=== PATIENT | male | born 1935 | race Caucasian/White ===

== ENCOUNTER 2016-12-13 13:06 | Inpatient (IN) | payer MEDICARE ==
[2016-12-13] MEDS ORDERED: Pantoprazole IV* 40 MG IV ONE (14:21)
[2016-12-13] MEDS ORDERED: NS 0.9% 1000 ML* 1,000 ML IV ONE (14:22)
--- NOTE | 2016-12-13 14:37 | ED ---
Rickie Quinn Rebecca, scribed for Vanessa Greenberg MD on 12/13/16 at 1349 . Abdominal Pain/Male - HPI Summary HPI Summary: Pt is a 81 y/o M BIBA who presents to ED c/o abd pain since 0430 this morning. Pain is in the epigastric region with radiation up the chest described as going up his esophagus and characterized as his typical indigestion, described as burning. Pain is currently moderate, ranked 5/10. Reports he experiences indigestion often, which is typically alleviated by Tums but they no longer alleviate sx as well. Last took a few Tums today at noon. Pt states has been belching and it tastes "sour." Pt reports his "acid stomach" is worse if he lays right lateral recumbant. Pt states this feels similar, but more intense. Pt denies feves, chills, rash. Pt denies cp, sob. Additionally c/o mild SOB, generalized weakness, fatigue, diaphoresis and N/V this morning. Pt states felt weak and fatigue with walking. Pt states became diaphoretic and weak with walking. Vomited 2x this morning which was "pure black fluid." Notes diarrhea with a "pure black" BM this morning. Pt states he regularly checks his stool and that today's black stool is different. Denies dysuria, dizziness. Pt is in Pradaxa. Notes a normal stress test this spring Dr. Morris. Pt states was peviously on Nexium following a scope 3 years ago, Dr. Vega. States scope was negative. Pt states could not afford Nexium so was prescribed zantac. Pt states stopped taking approx 1 year ago because didn't think he needed it. Daughter reports he appeared very weak this morning and that he typically experiences slight dyspnea at exertion. PMHx A Fib for which he is on Pradaxa. Had a stress test 1 year ago which revealed "good blood flow." Does not take any iron supplements. Had a colonoscopy with Dr. Vega in 2013. - History of Current Complaint Chief Complaint: EDAbdPain Stated Complaint: VOMITING / ABD PAIN Time Seen by Provider: 12/13/16 13:48 Hx Obtained From: Patient, Family/Guest Relations Agent - Daughter Onset/Duration: Still Present Timing: Constant, Lasting Hours Severity Currently: Moderate Pain Intensity: 5 Pain Scale Used: 0-10 Numeric Location: Epigastric Radiates: Yes Radiates to: Chest Character: Burning Aggravating Factor(s): Nothing Alleviating Factor(s): Nothing Associated Signs And Symptoms: Positive: Nausea, Vomiting, Diarrhea - Allergies/Home Medications Allergies/Adverse Reactions: Allergies Allergy/AdvReac Type Severity Reaction Status Date / Time Ibuprofen [From Advil] Allergy See Comment Verified 12/13/16 13:57 Home Medications: Home Medications Calcium Carbonate CHEW TAB* [Tums*] 1 - 2 tab PO TID 12/13/16 [History Confirmed 12/13/16] Magnesium Chloride EC TAB* [Slow Mag EC TAB*] 1 tab PO DAILY 12/13/16 [History Confirmed 12/13/16] PMH/Surg Hx/FS Hx/Imm Hx Endocrine/Hematology History: Reports: Hx Anticoagulant Therapy - Pradaxa Denies: Hx Diabetes, Hx Thyroid Disease Cardiovascular History: Reports: Hx Angina, Hx Atrial Fibrillation, Hx Hypertension - ON MEDICATION, Other Cardiovascular Problems/Disorders - AFIB Denies: Hx Coronary Artery Disease, Hx Hypercholesterolemia, Hx Myocardial Infarction, Hx Pacemaker/ICD, Hx Valvular Heart Disease Respiratory History: Reports: Hx Sleep Apnea Denies: Hx Asthma, Hx Chronic Obstructive Pulmonary Disease (COPD) GI History: Denies: Hx Ulcer History: Reports: Hx Kidney Stones - 4 YRS AGO Musculoskeletal History: Reports: Hx Arthritis - THUMBS Denies: Hx Rheumatoid Arthritis, Hx Osteoporosis Sensory History: Reports: Hx Contacts or Glasses - GLASSES Denies: Hx Hearing Aid Opthamlomology History: Reports: Hx Contacts or Glasses - GLASSES Psychiatric History: Denies: Hx Panic Disorder - Surgical History Surgery Procedure, Year, and Place: rotator cuff 1979, appy 1956. L ESWL 2010 [facility] [place] Hx Anesthesia Reactions: No Infectious Disease History: Denies: Hx Hepatitis, Hx Human Immunodeficiency Virus (HIV), Traveled Outside the [place] in Last 30 Days - Family History Known Family History: Positive: Cardiac Disease Negative: Diabetes - Social History Occupation: Retired Lives: With Family Alcohol Use: Rare Substance Use Type: Reports: None Smoking Status (MU): Never Smoked Tobacco Review of Systems Positive: Fatigue, Skin Diaphoresis, Other - Generalized weakness Eyes: Negative ENT: Negative Negative: Chest Pain Positive: Shortness Of Breath - mild Positive: Abdominal Pain - epigastric burning with radiation , Vomiting - "pure black fluid", Diarrhea - "pure black", Nausea, Other - Denies hematemesis Genitourinary: Negative Negative: dysuria Skin: Negative Neurological: Other - Denies dizziness Psychological: Normal All Other Systems Reviewed And Are Negative: Yes Physical Exam Triage Information Reviewed: Yes Vital Signs On Initial Exam: Initial Vitals Temp Pulse Resp BP Pulse Ox 98.3 F 84 16 131/66 97 12/13/16 13:40 12/13/16 13:40 12/13/16 13:40 12/13/16 13:40 12/13/16 13:40 Completion Of Physical Exam Limited Due To: Dementia Appearance: Positive: Well-Nourished, Ill-Appearing - pallor Skin: Positive: Warm, Dry, Other - pallor Head/Face: Positive: Normal Head/Face Inspection Eyes: Positive: Normal ENT: Positive: Normal ENT inspection, Hearing grossly normal, Pharynx normal, TMs normal Neck: Positive: Supple, Nontender, No Lymphadenopathy Respiratory/Lung Sounds: Positive: Clear to Auscultation, Breath Sounds Present , Decreased Breath Sounds Cardiovascular: Positive: Normal, Pulses are Symmetrical in both Upper and Lower Extremities. Negative: Murmur Abdomen Description: Positive: Nontender, No Organomegaly, Soft, Other: - + melena stool Bowel Sounds: Positive: Hypoactive Musculoskeletal: Positive: Normal, Strength/ROM Intact Neurological: Positive: Normal, Sensory/Motor Intact, Alert, Oriented to Person Place, Time Psychiatric: Positive: Normal AVPU Assessment: Alert - Lincoln Coma Scale Best Eye Response: 4 - Spontaneous Best Motor Response: 6 - Obeys Commands Best Verbal Response: 5 - Oriented Diagnostics - Vital Signs Vital Signs Temp Pulse Resp BP Pulse Ox 12/13/16 13:40 98.3 F 84 16 131/66 97 - Laboratory Result Diagrams: 12/13/16 14:30 12/13/16 14:30 Lab Statement: Any lab studies that have been ordered have been reviewed, and results considered in the medical decision making process. - Radiology CXR Xray Interpretation: No Acute Changes - No radiographic evidence for acute cardiopulmonary abnormality on this portable chest x-ray. Radiology Interpretation Completed By: Radiologist - EKG 1438 Cardiac Rate: NL - 87 bpm EKG Rhythm: Atrial Fibrillation Ectopy: PVCs EKG Interpretation: Intervted T wave in lead 1; No STEMI Re-Evaluation - Re-Evaluation First Eval Re-Evaluation Time: 15:08 Comment: Discussed plan to admit pt and conversation with hospitalist. Pt aware of increased BUn/CR. aware of slight elevation of trop. Pt tool Pradaxa this morning. Abdominal Pain Fem Course/Dx - Course Assessment/Plan: Patient medications reviewed this visit. Pt presents with progressive nausea, weakness and epigastric discomfort and burning. 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 Pt notes progressive SOB with activity, today with diaphoresis. On exam pt pale with apparent black stool / melena. Will place 2 IV. protonix. labs. ekg. stool guiaic. T+C. trop. anticipate will admit. Pt and family at bedside - comfortable and in agreement with plan - Diagnoses Provider Diagnoses: GI bleed, Elevated troponin - Provider Notifications Discussed Care Of Patient With: Lizzy Cisneros Time Discussed With Above Provider: 15:04 Instructed by Provider To: Admit As Inpatient - Admits for GI bleed agre with plan for Protonix drip. Discharge - Discharge Plan Condition: Stable Disposition: AGAINST MEDICAL ADVICE The documentation as recorded by the Rickie rivers Rebecca accurately reflects the service I personally performed and the decisions made by me, Vanessa Greenberg MD.
[2016-12-13 14:39] LABS: Hematocrit 35 % (42-52); Hemoglobin 11.7 g/dl (14.0-18.0); Mean Corpuscular HGB Conc 33 g/dl (31-36); Mean Corpuscular Hemoglobin 29 pg (27-31); Mean Corpuscular Volume 87 fL (80-94); Mean Platelet Volume 10 um3 (7.4-10.4); Red Blood Count 4.08 10^6/ul (4.0-5.4); Red Cell Distribution Width 14 % (10.5-15); White Blood Count 12.2 10^3/ul (3.5-10.8)
[2016-12-13 14:58] LABS: Albumin 3.4 g/dL (3.2-5.2); BUN/Creatinine Ratio 43.7 (8-20); Calcium 10.1 mg/dL (8.6-10.3); EGFR African American 65.6 (>60); Globulin 3.1 g/dL (2-4); Magnesium 1.9 mg/dL (1.9-2.7); Potassium 4.1 mmol/L (3.5-5.0); Total Bilirubin 0.6 mg/dL (0.2-1.0); Total Protein 6.5 g/dL (6.4-8.9)
--- NOTE | 2016-12-13 14:58 | RAD ---
INDICATION: Vomiting and abdominal pain COMPARISON: Chest x-ray dated March 27, 2016 TECHNIQUE: Single AP portable view of the chest was obtained. FINDINGS: Image quality is compromised due to the relative inferiority of a portable chest x-ray. The heart and mediastinum exhibit normal size and contour. The lungs are grossly clear. There is no evidence of a large pleural effusion. Visualized bones are normal for the patient's age. IMPRESSION: No radiographic evidence for acute cardiopulmonary abnormality on this portable chest x-ray.
[2016-12-13 15:04] LABS: Troponin I 0.08 ng/mL (<0.04)
[2016-12-13] MEDS ORDERED: Ondansetron INJ* 2 MG/ML VIAL IV PRN (15:40)
[2016-12-13] MEDS ORDERED: Acetaminophen TAB* 325 MG PO PRN (15:40)
[2016-12-13] MEDS: NS 0.9% 1000 ML* 1,000 ML IV SCH (16:44)
[2016-12-13 17:04] LABS: Urine Bacteria Absent (Absent); Urine Bilirubin Negative (Negative); Urine Glucose Negative (Negative); Urine Nitrite Negative (Negative)
[2016-12-13] MEDS: Pantoprazole IV* 80 MG in NS 0.9% 250 ML* 250 ML IVPB SCH (17:18)
[2016-12-13] MEDS: Tamsulosin CAP* 0.4 MG PO SCH (17:18)
[2016-12-13 17:30] LABS: Hematocrit 32 % (42-52); Hemoglobin 10.5 g/dl (14.0-18.0)
--- NOTE | 2016-12-13 22:28 | HP ---
CC: Dr. Young; Dr. Shah * HISTORY AND PHYSICAL: DATE OF ADMISSION: 12/13/16 ATTENDING PROVIDER: Dr. Cisneros * (DICTATD BY SANDRA BOWMAN NP) PRIMARY CARE PROVIDER: Dr. Young. CONSULTING LEATHER CLEANER: Dr. Shah. CHIEF COMPLAINT: 1. Coffee-ground emesis. 2. Tarry stools. HISTORY OF PRESENT ILLNESS: Mr. Lange is a 81-year-old male patient who has a history of AFib, hypertension, BPH, ARBEN, which he is noncompliant with his mask for, and a history of acid reflux. He comes in saying that the last couple of weeks he has had burning epigastric discomfort that starts on the top part of his stomach and radiates up into his chest. He denied having any chest pain and denied having any shortness of breath. He states that last night he went to bed, his stomach felt off, he woke up this morning around 5:30, he vomited, he noticed that he almost filled the bottom of his sink, he filled it up with some black looking emesis. He, shortly thereafter, made some breakfast. He ate some toast and had some tea. Shortly after, he had a black tarry stool x1. He went to his shop and on coming back from the shop, he did not feel well, he got lightheaded, he felt dizzy, he became diaphoretic. He felt like he was going to faint. He sat down again on the toilet, had another small tarry stool and at that point he was concerned that he maybe bleeding and he called 911. There has been no recent reports of fever. He denies any chest pain now. He says he is not having any epigastric discomfort. He says he took an Aleve 2 weeks ago, but does not routinely take this and he does state that he is on Pradaxa for atrial fibrillation. He denied having any abdominal discomfort. No recent cough. No shortness of breath with the exception of when he was walking back to his shop. He came in and was evaluated in the ED. It was noted that he was heme positive. His hemoglobin was down to 11.7. His BUN was up to 59 and elevated troponin of 0.08. Because of these findings and concern for GI bleed, we were asked to evaluate for admission. PAST MEDICAL HISTORY: Significant for: 1. AFib. 2. Hypertension. 3. ARBEN. 4. BPH. 5. GERD. PAST SURGICAL HISTORY: 1. He has had a knee arthroscopy. 2. Appendectomy. 3. Rotator cuff repair. MEDICATIONS: Home meds according his recall include: 1. Pradaxa 150 mg p.o. b.i.d. 2. Calcium carbonate 1 to 2 tabs p.o. t.i.d. 3. Magnesium chloride 1 tablet p.o. daily. 4. Flomax 0.4 mg p.o. daily at bedtime. 5. Proscar 5 mg in the morning. ALLERGIES: His allergies to medications include IBUPROFEN. FAMILY HISTORY: His mother lived to the age of 91, she had dementia. Father lived to the age of 96, he of old age. SOCIAL HISTORY: He does not smoke. He does not drink. He lives with his . Surrogate decision maker is his . REVIEW OF SYSTEMS: There is no documented fever. He denied having any significant weight changes. There was no double vision. He denies having any ear discharge. There was no rhinorrhea. No sore throat or thyroid enlargement. Denies having any chest pain. There was no orthopnea. No nocturnal dyspnea. There is no abdominal pain currently; he did admit to having epigastric pain. He denied having any dysuria. He did admit to having frequency last night. There was nausea with vomiting. No dysuria. There was no loss of consciousness. No pruritus and no skin ulcerations. Review of 14 systems was completed, all others are negative. PHYSICAL EXAMINATION GENERAL: At this time, Mr. Lange is a 81-year-old male patient. He appears to be well nourished, well developed. He does not appear to be in any acute distress. VITAL SIGNS: Blood pressure 131/66, pulse 84, respirations 16, O2 sat 100%, and temperature 98.3. HEENT: Head is atraumatic and normocephalic. Eyes: EOMs are intact. Sclerae anicteric. Throat: Oral mucosa appears to be dry. No oropharyngeal erythema. NECK: Supple. LUNGS: Clear to auscultation. No wheezes, rales or rhonchi. HEART: Sounds S1, S2. Irregularly irregular rate. No murmurs, rubs or gallops. ABDOMEN: Soft, flat. It was nontender. Bowel sounds present. EXTREMITIES: Pulses are 2+ throughout. Able to move all 4 extremities with 5/ 5 strength. NEUROLOGIC: He is awake, he is alert, and he is oriented x3. His tongue is midline. His correction officer reformatory were equal. He had no gross focal deficits. SKIN: Intact. LABORATORY DATA/DIAGNOSTIC STUDIES: Labs revealed WBC 12.2, RBC 4.08, hemoglobin 11.7, hematocrit 35, platelet count of 150. Sodium is 137, potassium is 4.1, chloride of 106, BUN of 59, creatinine 1.35, his creatinine is right near his baseline, but the BUN is high for him, glucose is 143. Lactate 1.9. Calcium 10.1, mag 1.9. Total bili 0.6, AST 11, ALT 15, alk phos 51. Troponin 0.08. Albumin of 3.4. Lipase is 28. He did have a chest x-ray obtained today, impression: No radiographic evidence for acute cardiopulmonary abnormality on this portable x-ray. He did have an EKG obtained today, which does have a subtle difference from his previous EKG. He does have one T-wave inversion now noted in lead I. They were negative in the past. He does have a left bundle-branch block, which is unchanged. No other acute changes were noted. He did have a PVC and he did appear to be in AFib. Old medical records were reviewed. ASSESSMENT AND PLAN: Mr. Lange is a 81-year-old male patient, coming into the ER today with complaints of tarry black stools x2, black emesis x2. On evaluation today, he was found to have elevated BUN, elevated troponin, concern for GI bleed, he was heme-positive. We are asked to evaluate for admission. He will be admitted under inpatient status for: 1. Gastrointestinal bleed: I suspect this is an upper GI bleed. My plan at this point is to touch base with Dr. Shah. I will go ahead and put 2 IVs in him. I will get 2 units of blood on hold. We will check serial H and Hs. In addition to this, I will put him on a Protonix drip, place him on clear liquid diet, and n.p.o. after midnight for possible EGD in the morning. He is hemodynamically stable. Currently, we will stop the Pradaxa. I am getting an INR and a PT as well. 2. Elevated troponin: I suspect this is probably demand ischemia. He does have that subtle EKG change as well, again probably demand ischemia. He is not having any chest pain. I will trend these, get an EKG in the morning, place him on telemetry, and get an echo. 3. Atrial fibrillation: We will hold the Pradaxa. He is rate controlled. We will monitor. 4. Hypertension: Blood pressure is stable. He is currently not on any antihypertensives. We will follow. 5. Benign prostatic hypertrophy: Continue his meds as prescribed. 6. Obstructive sleep apnea: He can follow with his primary. 7. Gastroesophageal reflux disease: He will be on a PPI drip. 8. DVT prophylaxis: I will order SCDs. 9. Fluids, electrolytes, nutrition: He will be on a clear liquid diet and then n.p.o. after midnight. 10. Code status: He is a full code. TIME SPENT: Time spent on this admission was 60 minutes, greater than half the time spent [id number] with the patient obtaining my history and physical, the other half of the time was spent going over the plan of care with the patient and implementing plan of care. I did discuss the plan of care with my attending, Dr. Cisneros, she is in agreement. SANDRA BOWMAN NP [id number]/CPS #: [id number] MTDKaitlin
[2016-12-13 23:24] LABS: Hematocrit 28 % (42-52); Hemoglobin 9.1 g/dl (14.0-18.0)
[2016-12-14] MEDS: Pantoprazole IV* 80 MG in NS 0.9% 250 ML* 250 ML IVPB SCH ×3 (03:22→23:25)
[2016-12-14] MEDS: NS 0.9% 1000 ML* 1,000 ML IV SCH ×2 (06:23→20:03)
[2016-12-14 06:56] LABS: Hematocrit 29 % (42-52); Hemoglobin 9.6 g/dl (14.0-18.0); Mean Corpuscular HGB Conc 33 g/dl (31-36); Mean Corpuscular Hemoglobin 29 pg (27-31); Mean Corpuscular Volume 86 fL (80-94); Mean Platelet Volume 10 um3 (7.4-10.4); Red Blood Count 3.34 10^6/ul (4.0-5.4); Red Cell Distribution Width 15 % (10.5-15); White Blood Count 7.8 10^3/ul (3.5-10.8)
[2016-12-14 07:13] LABS: BUN/Creatinine Ratio 37.7 (8-20); Calcium 8.1 mg/dL (8.6-10.3); EGFR African American 73.7 (>60); EGFR Non-African American 57.3 (>60); Potassium 4.1 mmol/L (3.5-5.0)
[2016-12-14 07:34] LABS: Troponin I 0.12 ng/mL (<0.04)
[2016-12-14] MEDS: Finasteride TAB* 5 MG PO SCH (09:04)
--- NOTE | 2016-12-14 11:26 | ECHO ---
Patient: NED GALLO [facility] Rec#: [id number] : 1935 Date: 12/14/2016 Age: 81y Height: 177.8 cm / 70.0 in Weight: 87.54 kg / 192.9 lbs Sex: M BSA: 2.06 Room#: 444 Admit Date#: 12/13/2016 Type: Inpatient Referring: Alfredo Braun NP Reading: Uday Tyson DO Thermal Cutting Machine Operator: Uday Tyson DO CC: Estuardo Young MD CC: Grupo Morris MD Transthoracic Echocardiogram Indication: A-fib BP: 105/61 HR: 73 Rhythm: A-Fib Findings History: A-fib, HTN, ARBEN ,GERD. Technical Comments: The study quality is good. Completed at 0859. Left Ventricle: The left ventricular chamber size is decreased. Severe concentric left ventricular hypertrophy is observed. Global left ventricular wall motion and contractility are within normal limits. The estimated ejection fraction is 55-60%. The assessment of diastolic function is non-diagnostic. Left Atrium: The left atrium is moderate to severely dilated. Right Ventricle: The right ventricular chamber size and systolic function are within normal limits. Right Atrium: The right atrial cavity size is normal. Aortic Valve: The aortic valve is trileaflet. There is mild aortic regurgitation. There is no evidence of aortic stenosis. Mitral Valve: The mitral valve leaflets are mildly thickened. There is mild mitral regurgitation. There is no evidence of mitral stenosis. Tricuspid Valve: The tricuspid valve leaflets are normal. There is mild tricuspid regurgitation. No pulmonary hypertension is noted. There is no tricuspid stenosis. Pulmonic Valve: The pulmonic valve appears normal. There is trace to mild pulmonic regurgitation. There is no pulmonic stenosis. Pericardium: There is no significant pericardial effusion. Aorta: There is mild dilatation of the ascending aorta. There is no dilatation of the aortic arch. There is mild dilatation of the aortic root. Pulmonary Artery: The main pulmonary artery is not well visualized. Venous: The venous system is not well visualized. Conclusions Patient is in atrial fibrillation at time of study. The left ventricular chamber size is decreased. Severe concentric left ventricular hypertrophy is observed. Global left ventricular wall motion and contractility are within normal limits. The estimated ejection fraction is 55-60%. The left atrium is moderate to severely dilated. Normal RV size and function. No more than mild valvular regurgitation noted. Compared to prior study from 04/2016, no clinically significant changes noted. Measurements Name Value Normal Range RVIDd (AP) 2D 2.9 cm (0.9 - 2.6) RVDdMajor (2D) 2.3 cm (2.2 - 4.4) RAd ISD 4CH 3.9 cm (3.4 - 4.9) RA (A4C)W 3.5 cm (2.9 - 4.6) IVSd (2D) 1.9 cm (0.6 - 1) LVPWd (2D) 1.6 cm (0.6 - 1) LVIDd (2D) 3.2 cm (3.6 - 5.4) LVIDs (2D) 2.5 cm - LV FS (2D) 21 % (25 - 45) Aortic Annulus 2.6 cm (1.4 - 2.6) Ao root diameter (2D) 3.6 cm (2.1 - 3.5) Ascending Ao 3.5 cm (2.1 - 3.4) Aortic arch 2.6 cm (1.8 - 3.4) Descending Ao 0.4 cm - LA dimension (AP) 2D 4.3 cm (2.3 - 3.8) LAd ISD 4CH 4.7 cm (2.9 - 5.3) LA ISD 4CH W 5.6 cm (2.5 - 4.5) Name Value Normal Range LA ESV SP 4CH (A/L) 77 ml - LA ESV SP 2CH (A/L) 87 ml - LA ESV BP (A/L) 89 ml - LA ESV BP (A/L) index 43.18 ml/m2 - LA ESV SP 4CH (MOD) 74 ml - LA ESV SP 2CH (MOD) 81 ml - Name Value Normal Range MV E-wave Vmax 0.8 m/sec - MV deceleration time 261 msec - LV septal e' Vmax 0.04 m/sec - LV lateral e' Vmax 0.41 m/sec - LV E:e' septal ratio 20 ratio - LV E:e' lateral ratio 2 ratio - Name Value Normal Range AV Vmax 1.2 m/sec - AV VTI 21.8 cm - AV peak gradient 5.3 mmHg - AV mean gradient 2.47 mmHg - LVOT diameter 2.3 cm - LVOT Vmax 1 m/sec - LVOT VTI 17.6 cm - LVOT peak gradient 3.88 mmHg - LVOT mean gradient 1.82 mmHg - NANO (continuity Vmax) 4 cm2 - NANO (continuity VTI) 3.3 cm2 - AR PHT 564 msec - AR peak gradient 62.04 mmHg - Name Value Normal Range TR Vmax 2.5 m/sec - TR peak gradient 25 mmHg - RAP 8 mmHg - RVSP 33 mmHg - Name Value Normal Range PV Vmax 1 m/sec - PV peak gradient 3.89 mmHg -
--- NOTE | 2016-12-14 15:14 | PN ---
Subjective Date of Service: 12/14/16 Interval History: Pt denies melena, or vomiting since admission. Denies abd pain. Stated he has had GERD symptoms for several months now. Objective Active Medications: Acetaminophen (Tylenol Tab*) 650 mg PO Q4H PRN PRN Reason: FEVER/PAIN Finasteride (Proscar Tab*) 5 mg PO QAM [facility] Last Admin: 12/14/16 09:04 Dose: 5 mg Sodium Chloride (Ns 0.9% 1000 Ml*) 1,000 mls @ 100 mls/hr IV PER RATE [facility] Last Admin: 12/14/16 06:23 Dose: 100 mls/hr Pantoprazole Sodium 80 mg/ (Sodium Chloride) 250 mls @ 25 mls/hr IVPB Q10H [facility] Last Admin: 12/14/16 13:23 Dose: 25 mls/hr Ondansetron HCl (Zofran Inj*) 4 mg IV Q6H PRN PRN Reason: NAUSEA Tamsulosin HCl (Flomax Cap*) 0.4 mg PO QPM [facility] Last Admin: 12/13/16 17:18 Dose: 0.4 mg Vital Signs 12/13/16 12/13/16 12/13/16 16:00 16:28 17:00 Temperature Pulse Rate 78 Respiratory 18 24 22 Rate Blood Pressure 138/111 (mmHg) O2 Sat by Pulse 97 Oximetry 12/13/16 12/13/16 12/13/16 17:02 18:00 19:00 Temperature Pulse Rate Respiratory 18 13 23 Rate Blood Pressure (mmHg) O2 Sat by Pulse Oximetry 12/13/16 12/13/16 12/13/16 19:24 20:00 21:00 Temperature 97.8 F Pulse Rate 80 Respiratory 17 17 16 Rate Blood Pressure 135/62 (mmHg) O2 Sat by Pulse 100 Oximetry 12/13/16 12/13/16 12/13/16 22:00 23:00 23:35 Temperature 98.0 F Pulse Rate 73 Respiratory 24 26 20 Rate Blood Pressure 120/63 (mmHg) O2 Sat by Pulse 99 Oximetry 12/14/16 12/14/16 12/14/16 00:00 01:00 02:00 Temperature Pulse Rate Respiratory 11 18 12 Rate Blood Pressure (mmHg) O2 Sat by Pulse Oximetry 12/14/16 12/14/16 12/14/16 02:22 03:00 03:42 Temperature 97.8 F 99.8 F Pulse Rate 77 99 Respiratory 16 0 20 Rate Blood Pressure 108/57 105/61 (mmHg) O2 Sat by Pulse 97 100 Oximetry 12/14/16 12/14/16 12/14/16 04:00 05:00 06:00 Temperature Pulse Rate Respiratory 11 9 21 Rate Blood Pressure (mmHg) O2 Sat by Pulse Oximetry 12/14/16 12/14/16 12/14/16 07:00 07:16 08:00 Temperature 98.0 F Pulse Rate 72 Respiratory 7 16 14 Rate Blood Pressure 126/60 (mmHg) O2 Sat by Pulse 100 Oximetry 12/14/16 12/14/16 12/14/16 09:00 10:00 11:00 Temperature Pulse Rate Respiratory 17 20 23 Rate Blood Pressure (mmHg) O2 Sat by Pulse Oximetry 12/14/16 12/14/16 12/14/16 11:20 12:00 14:48 Temperature 98.3 F Pulse Rate 77 Respiratory 16 7 18 Rate Blood Pressure 116/64 (mmHg) O2 Sat by Pulse 99 Oximetry Oxygen Devices in Use Now: None Appearance: 81 yo M in NAD, aAOx3 Eyes: No Scleral Icterus, PERRLA Ears/Nose/Mouth/Throat: NL Teeth, Lips, Gums, Mucous Membranes Moist Neck: NL Appearance and Movements; NL JVP, Trachea Midline Respiratory: Symmetrical Chest Expansion and Respiratory Effort, Clear to Auscultation Cardiovascular: NL Sounds; No Murmurs; No JVD, - - irregular Abdominal: NL Sounds; No Tenderness; No Distention, No Hepatosplenomegaly Lymphatic: No Cervical Adenopathy Extremities: No Edema, No Clubbing, Cyanosis Skin: No Rash or Ulcers, No Nodules or Sclerosis Neurological: Alert and Oriented x 3, NL Muscle Strength and Tone Result Diagrams: 12/14/16 06:49 12/14/16 06:48 Assess/Plan/Problems-Billing Assessment: 81 yo M with h/o a. fib (on Pradaxa) and GERD with melena and coffee ground emesis - Patient Problems (1) Upper GI bleed Comment: Cont clears, Protonix gtt. Appreciate Dr. Shah's consult. Planned EGD in aM (2) Atrial fibrillation Comment: in a controlled rate. Pradaxa on hold (3) Elevated troponin Comment: due to demand ischemia secondary to GI bleed. Pt denies CP Troponin at 0.12 Cont telem Stresst test at Dt. Morris's office on 04/14/16 WNL Echo shows severe LVH, EF 55-60% (4) BPH (benign prostatic hyperplasia) Comment: cont Flomax and Proscar (5) Anemia due to acute blood loss Comment: Due to GI bleed Hb now stable S/p 1 U PRBC transfused on 12/13/16 (6) DVT prophylaxis Comment: SCD's, anticoagulation contraindictated Status and Disposition: inpatient
--- NOTE | 2016-12-14 16:43 | CONS ---
CC: Dr. Young * CONSULTATION REPORT: DATE OF CONSULT: 12/14/16 REQUESTING PHYSICIAN: Alfredo Braun NP INDICATION: Anemia. NARRATIVE: Mr. Acevedo is a very pleasant 81-year-old gentleman with a long history of GERD, who had been on Nexium up until approximately a year ago. Unfortunately, he could not afford the Nexium and then was transitioned over to Pepcid. The patient states that he takes it intermittently. Yesterday, after eating lunch, he felt very ill, had upper abdominal discomfort and felt nauseated, approximately 2 to 3 hours after that he did vomit. He states that the vomit looked like coffee- ground and he felt very sweaty and lightheaded. He did rest at home and approximately an hour or 2 later, the same issue happened again. He vomited, but this time around it was bile and no coffee- grounds. The patient states he did have 2 bowel movements yesterday; both were black. Prior to yesterday, he states that he had been feeling very well. He denies any nonsteroidals. He is on Pradaxa. Currently, he is feeling better. He did receive 1 unit of blood overnight. He states his upper abdominal discomfort and nausea has dissipated. PAST MEDICAL HISTORY: Significant for GERD, BPH, sleep apnea, hypertension, and AFib, PAST SURGICAL HISTORY: Includes an appendectomy, knee scope, rotator cuff repair. MEDICATIONS AT HOME: 1. Proscar. 2. Flomax. 3. Magnesium. 4. Calcium carbonate. 5. Pradaxa twice a day. 6. Pepcid as needed. ALLERGIES: NONSTEROIDALS. FAMILY HISTORY: Dementia. SOCIAL HISTORY: He denies any tobacco or alcohol. He lives with his . REVIEW OF SYSTEMS: Twelve systems were reviewed, other than mentioned in the HPI were unremarkable. PHYSICAL EXAM: Temperature is 98.0, blood pressure is 126/60, pulse is 72. General: Well-appearing elderly male, in no apparent distress. Alert, oriented , and pleasant. Fluent. HEENT: Mucous membranes are moist without lesions, ulcers or exudate. Neck is supple. Trachea is midline. Head is normocephalic , atraumatic. Conjunctivae are pale. Sclerae are anicteric. Heart: Irregular rate and rhythm. Lungs: Clear to auscultation bilaterally. No wheezes, rales or rhonchi. Abdomen: Obese. Positive bowel sounds. Soft, nontender and nondistended. No hepatosplenomegaly, masses, rebound or guarding. Skin is warm and dry. LABORATORY DATA: Of note, his white count is 7.8, hemoglobin went from 11.7 to 9.6. BUN went from 59 to 46, creatinine went from 1.35 to 1.22. His INR is 1.33. His troponin started at 0.08, then went to 0.09, then to 0.12. ASSESSMENT AND PLAN: This is a pleasant 81-year-old gentleman, who likely is experiencing an upper gastro-intestinal bleed. He has had his Pradaxa stopped already. He is on IV Protonix. He denies any nonsteroidals, but he is on Pradaxa. I do wonder if this could be erosive esophagitis. I am concerned that his troponins have gone up a little bit. He did receive 1 unit of blood, he will likely will need more. I would like to plan for endoscopy, likely it will be tomorrow. He can eat today, and if his clinical situation changes, we may need to consider an EGD sooner rather than later. I will continue to follow along very closely. [id number]/[facility] #: [id number] [facility]
[2016-12-14] MEDS: Tamsulosin CAP* 0.4 MG PO SCH (16:56)
[2016-12-15 05:08] LABS: Hematocrit 27 % (42-52); Hemoglobin 8.8 g/dl (14.0-18.0); Mean Corpuscular HGB Conc 33 g/dl (31-36); Mean Corpuscular Hemoglobin 29 pg (27-31); Mean Corpuscular Volume 87 fL (80-94); Mean Platelet Volume 10 um3 (7.4-10.4); Red Blood Count 3.09 10^6/ul (4.0-5.4); Red Cell Distribution Width 15 % (10.5-15); White Blood Count 7.5 10^3/ul (3.5-10.8)
[2016-12-15 05:38] LABS: BUN/Creatinine Ratio 20.9 (8-20); Calcium 7.6 mg/dL (8.6-10.3); EGFR African American 56.7 (>60); EGFR Non-African American 44.1 (>60); Potassium 3.7 mmol/L (3.5-5.0)
[2016-12-15 05:46] LABS: Troponin I 0.14 ng/mL (<0.04)
[2016-12-15] MEDS: NS 0.9% 1000 ML* 1,000 ML IV SCH (06:10)
[2016-12-15] MEDS ORDERED: Meperidine SYRINGE* 50 MG/ML ONE ×2 (08:25)
[2016-12-15] MEDS ORDERED: Midazolam* 1 MG/ML 10 ML VIAL (10 MG) ONE ×2 (08:25)
[2016-12-15] MEDS ORDERED: NS 0.9% 1000 ML* 1,000 ML IV SCH (08:31)
[2016-12-15] MEDS: Pantoprazole IV* 80 MG in NS 0.9% 250 ML* 250 ML IVPB SCH (10:03)
[2016-12-15] MEDS: Finasteride TAB* 5 MG PO SCH (10:45)
--- NOTE | 2016-12-15 12:12 | PN ---
Subjective Date of Service: 12/15/16 Interval History: Pt was seen after EGD, still mildly sedated. Findings d/w present at the bedside Objective Active Medications: Acetaminophen (Tylenol Tab*) 650 mg PO Q4H PRN PRN Reason: FEVER/PAIN Finasteride (Proscar Tab*) 5 mg PO QAM [facility] Last Admin: 12/15/16 10:45 Dose: 5 mg Sodium Chloride (Ns 0.9% 1000 Ml*) 1,000 mls @ 75 mls/hr IV PER RATE [facility] Omeprazole (Prilosec Cap*) 20 mg PO BID [facility] Ondansetron HCl (Zofran Inj*) 4 mg IV Q6H PRN PRN Reason: NAUSEA Tamsulosin HCl (Flomax Cap*) 0.4 mg PO QPM [facility] Last Admin: 12/14/16 16:56 Dose: 0.4 mg Vital Signs 12/14/16 12/14/16 12/14/16 13:00 14:00 14:48 Temperature Pulse Rate Respiratory 17 18 18 Rate Blood Pressure (mmHg) O2 Sat by Pulse Oximetry 12/14/16 12/14/16 12/14/16 15:00 16:00 17:00 Temperature Pulse Rate Respiratory 24 19 25 Rate Blood Pressure (mmHg) O2 Sat by Pulse Oximetry 12/14/16 12/14/16 12/14/16 17:37 18:00 19:44 Temperature 97.4 F 98.4 F Pulse Rate 80 69 Respiratory 16 19 18 Rate Blood Pressure 129/60 114/53 (mmHg) O2 Sat by Pulse 100 100 Oximetry 12/14/16 12/14/16 12/14/16 20:00 20:07 21:00 Temperature Pulse Rate Respiratory 18 18 23 Rate Blood Pressure (mmHg) O2 Sat by Pulse Oximetry 12/14/16 12/14/16 12/15/16 22:00 23:45 01:00 Temperature 97.2 F Pulse Rate 74 Respiratory 17 24 13 Rate Blood Pressure 140/65 (mmHg) O2 Sat by Pulse 99 Oximetry 12/15/16 12/15/16 12/15/16 02:00 03:00 04:00 Temperature Pulse Rate Respiratory 16 14 11 Rate Blood Pressure (mmHg) O2 Sat by Pulse Oximetry 12/15/16 12/15/16 12/15/16 04:02 04:12 05:00 Temperature 97.3 F Pulse Rate 71 63 Respiratory 20 19 Rate Blood Pressure 118/57 (mmHg) O2 Sat by Pulse 88 98 Oximetry 12/15/16 12/15/16 12/15/16 06:00 07:00 07:48 Temperature 97.8 F Pulse Rate 57 Respiratory 33 5 24 Rate Blood Pressure 128/70 (mmHg) O2 Sat by Pulse 99 Oximetry 12/15/16 12/15/16 12/15/16 08:00 09:46 10:00 Temperature Pulse Rate Respiratory 20 0 0 Rate Blood Pressure (mmHg) O2 Sat by Pulse Oximetry 12/15/16 12/15/16 12/15/16 10:05 11:00 11:16 Temperature 97.6 F 97.3 F Pulse Rate 57 56 Respiratory 18 13 24 Rate Blood Pressure 122/72 129/69 (mmHg) O2 Sat by Pulse 98 99 Oximetry Oxygen Devices in Use Now: None Appearance: 81 yo M in NAD, AAOx3, mild sedation after EGD noted Eyes: No Scleral Icterus, PERRLA Ears/Nose/Mouth/Throat: NL Teeth, Lips, Gums, Mucous Membranes Moist Neck: NL Appearance and Movements; NL JVP, Trachea Midline Respiratory: Symmetrical Chest Expansion and Respiratory Effort, Clear to Auscultation Cardiovascular: NL Sounds; No Murmurs; No JVD, - - irregular Abdominal: NL Sounds; No Tenderness; No Distention, No Hepatosplenomegaly Lymphatic: No Cervical Adenopathy Extremities: No Edema, No Clubbing, Cyanosis Skin: No Rash or Ulcers, No Nodules or Sclerosis Neurological: Alert and Oriented x 3, NL Muscle Strength and Tone Result Diagrams: 12/15/16 04:46 12/15/16 04:46 Microbiology and Other Data: Microbiology 12/13/16 20:31 Aerobic Blood Culture - Preliminary Blood Venous No Growth Day 1 Anaerobic Blood Culture - Preliminary No Growth Day 1 12/13/16 17:09 Aerobic Blood Culture - Preliminary Blood Venous No Growth Day 1 Anaerobic Blood Culture - Preliminary No Growth Day 1 Assess/Plan/Problems-Billing Assessment: 81 yo M with h/o a. fib (on Pradaxa) and GERD with melena and coffee ground emesis - Patient Problems (1) Upper GI bleed Comment: EGD shows duodenal and gastric ulcers, no active bleeding. Will start omeprazole, stop Protonix gtt advanced to regular by GI. (2) Atrial fibrillation Comment: in a controlled rate. Pradaxa on hold, plan to restart in 3-5 days as outpatient (3) Elevated troponin Comment: due to demand ischemia secondary to GI bleed. Pt denies CP Troponin still climbing, due to that will transfuse another U PRBC Pt has h/o PLUMMER for several months, now with demand ischemia - he will require further cardiac eval once GI problems are solved. Due to GI bleed he is not a candidate for cath. D/w Pt and . Strest test at Dt. Morris's office on 04/14/16 WNL Echo shows severe LVH, EF 55-60%. Intestingly enough, pt had not been hypertensive. May require further eval re: reasons for LVH, + as outpatient (4) BPH (benign prostatic hyperplasia) Comment: cont Flomax and Proscar (5) Anemia due to acute blood loss Comment: Due to GI bleed Hb now lower at 8.8, will transfuse due to elevated troponin S/p 1 U PRBC transfused on 12/13/16, another 1 U PRBC ordered today. (6) DVT prophylaxis Comment: SCD's, anticoagulation contraindictated Status and Disposition: inpatient
[2016-12-15] MEDS: Tamsulosin CAP* 0.4 MG PO SCH (18:19)
[2016-12-15] MEDS: Omeprazole CAP* 20 MG PO SCH (20:08)
[2016-12-16 04:47] LABS: Hematocrit 28 % (42-52); Hemoglobin 9.3 g/dl (14.0-18.0); Mean Corpuscular HGB Conc 34 g/dl (31-36); Mean Corpuscular Hemoglobin 29 pg (27-31); Mean Corpuscular Volume 87 fL (80-94); Mean Platelet Volume 10 um3 (7.4-10.4); Red Blood Count 3.21 10^6/ul (4.0-5.4); Red Cell Distribution Width 15 % (10.5-15); White Blood Count 7.6 10^3/ul (3.5-10.8)
[2016-12-16 04:59] LABS: Calcium 7.8 mg/dL (8.6-10.3); EGFR African American 56.7 (>60); EGFR Non-African American 44.1 (>60); Potassium 4.1 mmol/L (3.5-5.0)
[2016-12-16 05:03] LABS: Troponin I 0.15 ng/mL (<0.04)
[2016-12-16] MEDS: Finasteride TAB* 5 MG PO SCH (09:23)
[2016-12-16] MEDS: Omeprazole CAP* 20 MG PO SCH ×2 (09:23→20:30)
--- NOTE | 2016-12-16 15:13 | PN ---
Subjective Date of Service: 12/16/16 Interval History: Pt feel very well. No c/o SOB or CP, eating well. Gamaliel abd "gas pains "today, but it resolved Objective Active Medications: Acetaminophen (Tylenol Tab*) 650 mg PO Q4H PRN PRN Reason: FEVER/PAIN Finasteride (Proscar Tab*) 5 mg PO QAM [facility] Last Admin: 12/16/16 09:23 Dose: 5 mg Omeprazole (Prilosec Cap*) 20 mg PO BID [facility] Last Admin: 12/16/16 09:23 Dose: 20 mg Ondansetron HCl (Zofran Inj*) 4 mg IV Q6H PRN PRN Reason: NAUSEA Tamsulosin HCl (Flomax Cap*) 0.4 mg PO QPM [facility] Last Admin: 12/15/16 18:19 Dose: 0.4 mg Vital Signs 12/15/16 12/15/16 12/15/16 15:23 16:00 17:00 Temperature 97.2 F Pulse Rate 57 Respiratory 24 6 0 Rate Blood Pressure 108/40 (mmHg) O2 Sat by Pulse 99 Oximetry 12/15/16 12/15/16 12/15/16 19:45 20:00 23:37 Temperature 97.8 F 97.5 F Pulse Rate 59 69 Respiratory 20 20 20 Rate Blood Pressure 108/37 147/88 (mmHg) O2 Sat by Pulse 100 98 Oximetry 12/16/16 12/16/16 12/16/16 03:50 07:16 08:00 Temperature 98.2 F 98.2 F Pulse Rate 71 60 Respiratory 24 20 20 Rate Blood Pressure 120/54 146/63 (mmHg) O2 Sat by Pulse 97 99 Oximetry 12/16/16 11:42 Temperature 97.5 F Pulse Rate 55 Respiratory 24 Rate Blood Pressure 145/68 (mmHg) O2 Sat by Pulse 98 Oximetry Oxygen Devices in Use Now: None Appearance: 81 yo M in nAD, aAOx3 Eyes: No Scleral Icterus, PERRLA Ears/Nose/Mouth/Throat: NL Teeth, Lips, Gums, Mucous Membranes Moist Neck: NL Appearance and Movements; NL JVP, Trachea Midline Respiratory: Symmetrical Chest Expansion and Respiratory Effort, Clear to Auscultation Cardiovascular: NL Sounds; No Murmurs; No JVD, - - irregular Abdominal: NL Sounds; No Tenderness; No Distention, No Hepatosplenomegaly Lymphatic: No Cervical Adenopathy Extremities: No Edema, No Clubbing, Cyanosis Skin: No Rash or Ulcers, No Nodules or Sclerosis Neurological: Alert and Oriented x 3, NL Muscle Strength and Tone Result Diagrams: 12/16/16 04:30 12/16/16 04:30 Microbiology and Other Data: Microbiology 12/13/16 20:31 Aerobic Blood Culture - Preliminary Blood Venous No Growth Day 1 Anaerobic Blood Culture - Preliminary No Growth Day 1 12/13/16 17:09 Aerobic Blood Culture - Preliminary Blood Venous No Growth Day 1 Anaerobic Blood Culture - Preliminary No Growth Day 1 Assess/Plan/Problems-Billing Assessment: 81 yo M with h/o a. fib (on Pradaxa) and GERD with melena and coffee ground emesis - Patient Problems (1) Upper GI bleed Comment: EGD showed duodenal and gastric ulcers, no active bleeding. cont omeprazole (2) Atrial fibrillation Comment: in a controlled rate. Pradaxa on hold, plan to restart in 3-5 days as outpatient (3) Elevated troponin Comment: due to demand ischemia secondary to GI bleed. Pt denies CP Troponin still climbing, due to that will ask cardiology for consult. Pt is asymptomatic. Pt has h/o PLUMMER for several months, now with demand ischemia - he will require further cardiac eval once GI problems are solved. Due to GI bleed he is not a candidate for cath. Strest test at Dt. Morris's office on 04/14/16 WNL Echo shows severe LVH, EF 55-60%. Intestingly enough, pt had not been hypertensive recently, but has h/o HTN for many years prior to dx of a. fib. (4) BPH (benign prostatic hyperplasia) Comment: cont Flomax and Proscar (5) Anemia due to acute blood loss Comment: Due to GI bleed s/p 2 U PRBC transfusion. Hb stable. (6) CKD (chronic kidney disease) stage 3, GFR 30-59 ml/min Comment: creat at baseline (7) DVT prophylaxis Comment: SCD's, anticoagulation contraindictated Status and Disposition: inpatient, awaiting cardiology clearance for d/c
[2016-12-16] MEDS ORDERED: Magnesium Hydroxide LIQ* 30 ML UDC PO ONE (15:33)
[2016-12-16] MEDS ORDERED: Docusate CAP* 100 MG PO PRN (15:34)
[2016-12-16] MEDS ORDERED: Docusate CAP* 100 MG PO ONE (15:34)
[2016-12-16] MEDS: Tamsulosin CAP* 0.4 MG PO SCH (17:32)
--- NOTE | 2016-12-17 01:30 | CONS ---
CC: Dr. Koenig; Dr. Morris; Dr. Danielle; Dr. Young * CARDIOLOGY CONSULT: DATE OF CONSULT: 12/16/16 HISTORY OF PRESENT ILLNESS: I was asked by Dr. Koenig in the hospitalist service to see this 81-year-old male patient, who does have a history of atrial fibrillation and who is on Pradaxa, history of systemic arterial hypertension, gastroesophageal reflux disease, hospitalized on 12/13/16, with GI bleed and coffee-ground emesis and tarry stools. His Pradaxa has been on hold. He was seen by GI and he underwent upper endoscopy and was found to have ulcers. Apparently, the patient has been having evaluation with the troponin and the troponins have been initially at 0.09 on the , has been going up, today is 0.15 x2, actually they have been holding. The patient never had symptoms of chest pain. He had a nuclear stress test in March [address] Morris's office that was reported to be no ischemia, no infarction. During this hospitalization, he had an echocardiogram that was reported to have normal left ventricular systolic function with an EF of 55% to 60% and left atrium moderately severely dilated and severe LVH. Compared to the echo done in April 2016, no significant changes noted. Cardiology consult was requested because of abnormal troponin. The patient is not a candidate for any cardiac catheterization given his GI bleed at the present time. He had no symptoms of chest pain. His EKG showed non-specific changes. He gives no shortness of breath, no orthopnea, no PNDs, no dizziness, no syncope, no fever, no chills, no skin rash, no tremors, no hematochezia, no nausea, no vomiting at the present time. He is definitely chest pain free. PAST MEDICAL HISTORY: Includes as well history of appendectomy, rotator cuff repair, knee arthroscopy, systemic arterial hypertension, atrial fibrillation, obstructive sleep apnea, benign prostatic hypertrophy, gastroesophageal reflux disease. MEDICATIONS AN OUTPATIENT: Include: 1. Pradaxa 150 mg twice a day. 2. Magnesium 1 daily. 3. Flomax 0.4 mg daily. 4. Proscar 5 mg in the morning. MEDICATIONS AN INPATIENT: Include: 1. Tylenol 650 mg p.o. q.4 hours p.r.n. 2. Colace 100 mg twice a day. 3. Proscar 5 mg daily. 4. Prilosec 20 mg twice a day. 5. Zofran 4 mg IV q.6 hours for nausea. 6. He is on Flomax 0.4 mg daily. ALLERGIES: He is allergic to IBUPROFEN. FAMILY HISTORY: No family history of premature CAD. SOCIAL HISTORY: No history of smoking. No drinking. No illicit drug use. He lives with his . REVIEW OF SYSTEMS: Review of all other systems essentially is negative. PHYSICAL EXAM: On exam, he is awake, alert, and oriented. He is not in acute distress. Vitals: Blood pressure 134/80, pulse 65. He is in atrial fibrillation and he is afebrile at 98.3. Head and Neck Exam: Normocephalic, atraumatic. Ears, nose, and throat essentially benign. Neck: Supple. JVP is not elevated. No carotid bruits. No masses in the neck is appreciated. Chest : Clear to auscultation. No rales, no wheezes, no added sounds appreciated. Heart: Regular S1, S2. No added sounds, no gallops, no rubs. Abdomen: Benign , positive bowel sounds. Extremities: No edema, no cyanosis, no clubbing. Skin Exam: Normal. Psych: Normal affect and mood. [employer]: No focal deficit is appreciated. DIAGNOSTIC STUDIES/LAB DATA: His labs showed the following: Sodium 139, potassium 4.1, chloride 113, total CO2 23. BUN 26, creatinine 1.5.3 Troponin 0.15. White blood cell 7.6, hemoglobin 9.3, hematocrit 28, platelets 107,000. His EKG showed him to be in atrial fibrillation and heart rate of 76 beats per minute, nonspecific T-wave changes and left bundle-branch block. IMPRESSION: The patient is a 81-year-old male with: 1. Presentation with upper GI bleed, status post upper endoscopy with 2 gastric ulcers, no active bleeding. 2. Known history of atrial fibrillation, heart rate well controlled. He is on Pradaxa. 3. Systemic arterial hypertension. 4. Borderline elevated troponin without any chest pain, felt to be demand ischemia related to his acute GI bleed and anemia. 5. Normal left ventricular systolic function with severe left ventricular hypertrophy. 6. Abnormal EKG as described. PLAN: As discussed with Dr. Koenig, the hospitalist service, the patient is currently hemodynamically stable. He is chest pain free. He does have normal left ventricular systolic function without obvious wall motion abnormality. He is not a candidate to proceed with a cardiac catheterization given his GI bleed and anemia. His Pradaxa is on hold and recommendation at the present time to continue to observe him, follow for any clinical symptoms, watch his troponin, continue aggressive lifestyle modification as you are already doing. Follow up with Cardiology as an outpatient for risk stratification. I explained all of the above to the patient. I answered all their concerns and questions to his satisfaction. His was at bedside. TIME SPENT: More than half of at least 60 plus minutes was [id number] in the education and counseling mode. I explained all of the above and answered all their concerns and questions. Thank you very much for asking us to participate in the care of this patient. [id number]/[facility] #: [id number] LATASHA
--- NOTE | 2016-12-17 03:03 | PRO ---
CC: Dr. Young * DATE OF PROCEDURE: 12/15/16 - ROOM #444 PROCEDURE: EGD. INDICATION: Anemia. REFERRING PHYSICIAN: Lizzy Cisneros DO. MEDICATIONS GIVEN: 25 mg IV Demerol, 6 mg IV Versed. PROCEDURE IN DETAIL: After the EGD procedure, including the risks, benefits, and alternatives, not limited to perforation, surgery, and/or were explained to Mr. Lange, written consent was then obtained. IV medication was given and a bite block was placed between the teeth. An Olympus gastroscope was then inserted into the patient's mouth, advanced down the esophagus, into the stomach, into the distal duodenum. In the esophagus, at the GE junction, he did have a small hiatal hernia. No erosive esophagitis, stricture or ring was seen. The scope was advanced through the GE junction into the body of the stomach. Retroflex view revealed diffuse gastritis. Biopsies were obtained in a small ulcer in the antrum. The scope was advanced through a widely patent pylorus into the duodenal bulb, into the distal duodenum. There was an ulcer in the duodenal bulb. Biopsy was obtained. The scope was then withdrawn from the patient. He tolerated the procedure well. He was returned to his hospital room in stable condition. IMPRESSION: 1. Complete upper endoscopy into the distal duodenum with biopsies. 2. Duodenal ulcer. 3. Gastric ulcer. 4. Gastritis. 5. Hiatal hernia. 6. Biopsies were obtained, I would like him to remain on a PPI. He will need a repeat EGD in approximately [address] Young, thank you very much for your kind referral. [id number]/[facility] #: [id number] [facility]
[2016-12-17] MEDS: Omeprazole CAP* 20 MG PO SCH (08:39)
[2016-12-17] MEDS: Finasteride TAB* 5 MG PO SCH (08:39)
[2016-12-17 08:45] VITALS: BP 152/58
--- NOTE | 2016-12-18 04:27 | DS ---
CC: Dr. Young; Dr. Shah, Dr. Morris; Dr. Danielle * DISCHARGE SUMMARY: DATE OF ADMISSION: 12/13/16 DATE OF DISCHARGE: 12/17/16 PRIMARY CARE PROVIDER: Dr. Young. DISCHARGE DIAGNOSES: 1. Upper gastrointestinal bleed due to two ulcers, one localized in the stomach and one localized in the duodenum with negative CARLOS test. 2. Anemia, due to the above mentioned. 3. Elevated troponin due to demand ischemia. SECONDARY DIAGNOSES: 1. History of chronic atrial fibrillation, on Pradaxa until the patient's current hospital stay when it was discontinued. 2. Hypertension. 3. Obstructive sleep apnea. 4. Benign prostatic hypertrophy. 6. Gastroesophageal reflux disease. 7. History of chronic kidney disease, stage 3. Please also note that the patient had been off his hypertension medications once he was in chronic atrial fibrillation. MEDICATIONS AT DISCHARGE: Include: 1. Calcium carbonate 1 to 2 tabs as needed for indigestion. 2. Proscar 5 mg daily. 3. Magnesium chloride one tablet daily. 4. Prilosec 20 mg b.i.d. 5. Flomax 0.4 mg daily. At discharge, the patient was recommended to have CBC drawn in approximately one week. At discharge, the patient was also recommended to follow up with Dr. Young in approximately one week. At this point, the patient's blood work will be drawn and the recommendation is for Dr. Young to most likely restart the patient's Pradaxa assuming the patient's blood counts are improving. The patient is to follow up with Dr. Morris in approximately four to six weeks. The patient is to follow up Dr. Shah in approximately one to two months. The patient is recommended to have an outpatient endoscopy follow up in approximately eight weeks. CONSULTATIONS DURING THE HOSPITAL STAY: Included Dr. Danielle from Cardiology ; Dr. Shah from Gastroenterology. LABORATORY DATA AND STUDIES PERFORMED DURING THE HOSPITAL STAY: Included: On 12/16/16: White blood cell count of 7.6, hemoglobin of 9.3, hematocrit of 28, and platelets of 107. Sodium of 139, potassium of 4.1, chloride of 113, carbon dioxide 23, BUN 26, and creatinine 1.53. The patient's troponin plateaued at 0.15 and increased from 0.08 to 0.05 during his hospital stay. Transthoracic echocardiogram obtained on 12/14/16 showed left ventricular chamber is decreased with severe concentric ventricular hypertrophy. EF of 55% to 60%. Left atrium moderately to severely dilated. Comparing to study from April 2016, no clinically significant changes. HOSPITALIZATION COURSE: Chinedu Lange is a 81-year-old male with a history of chronic atrial fibrillation, who used to have been treated for hypertension, but once he is in chronic atrial fibrillation, his hypertension basically resolved and he became bradycardic. He was on Pradaxa at home and he came into the hospital complaining of melena and an episode of near syncope and vomiting coffee-ground. He was diagnosed with upper GI bleed, placed on Protonix drip and upper endoscopy was performed by Dr. Shah on 12/15/16. At that point, it was noted that the patient had two ulcers at that point, nonbleeding in the stomach and duodenum. The pathology report showed mild to moderate chronic active duodenitis in the duodenum, duodenal ulcers and moderate chronic active gastritis and gastric ulcer. CARLOS test was negative. The patient was placed on omeprazole twice a day and his Protonix drip was discontinued. Whilst he was treated in the hospital, his chronic indigestion resolved. The patient suffered from anemia due to acute GI hemorrhage and he needed to be transfused 3 units of packed red blood cells during this hospital stay. By the time of discharge, his counts stabilized at 9. His lowest hemoglobin level was 8.8 on 12/15/16. The patient's troponin at admission was 0.08 and was slowly climbing up throughout his hospital stay to 0.15 on 12/16/16 and at that time, it plateaued. The patient has a history of chronic dyspnea ever since he was diagnosed to have chronic atrial fibrillation. He did have a negative cardiac stress test in April of 2016. I asked Dr. Danielle to see the patient in consultation, who recommended medical management with ramification of the patient's bradycardia as well as recent GI bleed. At this point, the patient is going to be discharged home on omeprazole twice a day. The Pradaxa is to restarted next week if the patient's anemia had not worsened. I recommended for the patient to follow up with Dr. Morris in regards to his cardiac issues, but once again he is not a candidate for cardiac catheterization or any further intervention due to his recent acute GI bleed. Dr. Shah recommended repeat EGD in approximately eight weeks and I asked the patient to schedule an appointment with Dr. Shah as an outpatient. PHYSICAL EXAMINATION AT THE TIME OF DISCHARGE: Blood pressure 152/58, heart rate of 63 and irregularly irregular, respiratory rate 20, oxygen saturation 99 % on room air, temperature 97.3. General: Chinedu is a very pleasant 81-year-old male, who is in no acute distress, alert, awake and oriented x3. HEENT: Head is atraumatic, normocephalic. Eyes: Pupils equal and reactive to light and accommodation. Oropharynx clear. Mucosa moist. Neck: Supple. No JVD. No bruits bilaterally. Cardiovascular: Irregularly irregular rhythm. No murmurs. Respiratory: Clear to auscultation bilaterally. Abdomen: Soft and nontender. Bowel sounds present in all 4 quadrants. Extremities: There is no edema. Pulses are +2 bilaterally. No clubbing or cyanosis. Neuro Evaluation: Cranial nerves II through XII grossly intact. Motor strength is 5/5 bilaterally. Please note that this is a very short summary of the patient's hospitalization. Please refer to further medical records for details. TIME SPENT: Approximately 40 minutes was spent on the patient's discharge. [id number]/[facility] #: [id number] [facility]OSPITALKaitlin
== END 2016-12-17 12:15 | disposition home or self-care (01) | DRG 378 ==
LOC: ED 13:06 → MEDTELE 15:37
PROVIDERS: ADMIT Hospitalist; ATTEND Internal Medicine
PROC: 0DB98ZX Excision of Duodenum, Via Natural or Artificial Opening Endoscopic, Diagnostic (ICD-10-PCS; principal; 2016-12-15)
PROC: 0DB68ZX Excision of Stomach, Via Natural or Artificial Opening Endoscopic, Diagnostic (ICD-10-PCS; 2016-12-15)
PROC: 30233N1 Transfusion of Nonautologous Red Blood Cells into Peripheral Vein, Percutaneous Approach (ICD-10-PCS; 2016-12-15)
DX: K26.4 Chronic or unspecified duodenal ulcer with hemorrhage (principal); D62 Acute posthemorrhagic anemia; I48.2 Chronic atrial fibrillation; K29.01 Acute gastritis with bleeding; K44.9 Diaphragmatic hernia without obstruction or gangrene; K21.9 Gastro-esophageal reflux disease without esophagitis; N40.0 Benign prostatic hyperplasia without lower urinary tract symptoms; G47.33 Obstructive sleep apnea (adult) (pediatric); R74.8 Abnormal levels of other serum enzymes; Z79.01 Long term (current) use of anticoagulants; Z79.899 Other long term (current) drug therapy; Z88.6 Allergy status to analgesic agent
CPT/HCPCS: 36415; 71010; 80048; 80053; 81003; 81015; 82272; 83036; 83605; 83690; 83735; 84484; 85014; 85018; 85025; 85027; 85610; 86850; 86900; 86901; 86922; 87040; 87077; 88305; 88342; 93005; 93306; A9270-GY; J2250; J2310; P9040

== ENCOUNTER 2019-11-10 08:35 | Observation (INO) ==
[2019-11-10] MEDS ORDERED: CEFAZOLIN IVPB ONE (09:20)
[2019-11-10] MEDS ORDERED: NS 0.9% IVPB ONE (09:20)
[2019-11-10] MEDS ORDERED: ceFAZolin 2 GM PREMIX in ORs 2 GM/50 ML BAG IVPB ONE (10:00)
[2019-11-10 10:15] LABS: INR 1.23 (0.82-1.09)
[2019-11-10] MEDS ORDERED: Lidocaine 1% VIAL 10 MG/ML VIAL ONE ×2 (11:37→11:42)
[2019-11-10] MEDS ORDERED: Iohexol 300 (CONTRAST) 10 ML SDV ONE (11:52)
[2019-11-10] MEDS ORDERED: Midazolam 5 mg/5 ml VIAL 1 mg/ml 5 ml VIAL (5 mg) ONE (11:52)
[2019-11-10] MEDS ORDERED: Naloxone 0.4 mg VIAL 0.4 mg/ml 1 ml VIAL ONE (11:52)
[2019-11-10] MEDS ORDERED: Flumazenil 0.5 mg/5 ml 0.1 MG/ML 5 ml VIAL ONE (11:52)
[2019-11-10] MEDS ORDERED: fentaNYL 100 mcg/2 ml 50 MCG/ML VIAL ONE (11:52)
[2019-11-10] MEDS: NS 0.9% 1000 ml BAG 1,000 ML IV SCH ×2 (14:25→23:36)
[2019-11-10] MEDS: ceFAZolin VIAL(*) 1 GM in NS 0.9% 50 ML 50 ML IVPB SCH (23:37)
[2019-11-11 09:42] LABS: BUN/Creatinine Ratio 12.9 (8-20); Calcium 9.4 mg/dL (8.6-10.3); EGFR African American 32.6 (>60); Potassium 4.4 mmol/L (3.5-5.0)
[2019-11-11] MEDS: ceFAZolin VIAL(*) 1 GM in NS 0.9% 50 ML 50 ML IVPB SCH (11:45)
[2019-11-11 12:08] VITALS: BP 136/55
[2019-11-11] MEDS ORDERED: Warfarin 5 mg TAB (*) PO SCH (17:00)
== END 2019-11-11 12:55 | disposition home or self-care (01) ==
LOC: MEDTELE 08:35 → CHICATH 08:35
PROVIDERS: ADMIT Specialist; ATTEND Internal Medicine Critical Care Medicine

== ENCOUNTER 2021-07-03 15:41 | Inpatient (IN) ==
[2021-07-03 17:14] LABS: ABS Eosinophils 0.1 10^3/ul (0-0.6); ABS Lymphocytes 0.6 10^3/ul (1.0-4.8); ABS Monocytes 0.6 10^3/ul (0-0.8); ABS Neutrophils 4.8 10^3/ul (1.5-7.7); Eosinophil % 1.8 %; Hematocrit 29 % (42-52); Hemoglobin 9.5 g/dL (14.0-18.0); Lymphocyte % 10.2 %; Mean Corpuscular HGB Conc 33 g/dL (31-36); Mean Corpuscular Hemoglobin 28 pg (27-31); Mean Corpuscular Volume 84 fL (80-94); Mean Platelet Volume 9.7 fL (7.4-10.4); Nucleated Red Blood Cells % 0.1; Platelet Count 129 10^3/uL (150-450); Red Blood Count 3.47 10^6 /uL (4.18-5.48); Red Cell Distribution Width 17 % (10-15); White Blood Count 6.1 10^3/uL (3.5-10.8)
[2021-07-03 17:27] LABS: Influenza A Molecular Negative (Negative); Influenza B Molecular Negative (Negative)
[2021-07-03 17:28] LABS: Rapid COVID-19 Molecular Undetected (Undetected)
[2021-07-03 17:35] LABS: ALT 13 U/L (7-52); AST 12 U/L (13-39); Albumin 4.1 g/dL (3.2-5.2); Albumin/Globulin Ratio 1.1 (1-3); Alkaline Phosphatase 93 U/L (35-149); Anion Gap 8 mmol/L (2-11); Blood Urea Nitrogen 46 mg/dL (6-24); C Reactive Protein 16.73 mg/L (<8.01); CO2 Carbon Dioxide 23 mmol/L (22-32); Calcium 9.2 mg/dL (8.6-10.3); Chloride 108 mmol/L (101-111); Globulin 3.7 g/dL (2-4); Glucose 110 mg/dL (70-100); Potassium 4.5 mmol/L (3.5-5.0); Sodium 139 mmol/L (135-145); Total Protein 7.8 g/dL (6.4-8.9); eGFR CKD-EPI 23.4 (>60)
[2021-07-03 17:46] LABS: Troponin I 0.31 ng/mL (<0.03)
[2021-07-03 21:12] LABS: Troponin I 0.32 ng/mL (<0.03)
[2021-07-03] MEDS ORDERED: Furosemide 40 mg/4 ml IV VIAL IV ONE (22:24)
[2021-07-03] MEDS ORDERED: Furosemide 40 mg/4 ml IV VIAL IV SLOW PU ONE (23:30)
[2021-07-04 01:35] LABS: Activated Partial Thrombo Time 44.8 seconds (26.0-38.0); INR 3.58 (0.86-1.15)
[2021-07-04 01:48] LABS: Troponin I 0.34 ng/mL (<0.03)
[2021-07-04 04:39] LABS: ABS Basophils 0.1 10^3/ul (0-0.2); ABS Eosinophils 0.1 10^3/ul (0-0.6); ABS Lymphocytes 0.6 10^3/ul (1.0-4.8); ABS Monocytes 0.7 10^3/ul (0-0.8); ABS Neutrophils 6.2 10^3/ul (1.5-7.7); Eosinophil % 1.5 %; Hematocrit 31 % (42-52); Hemoglobin 10.1 g/dL (14.0-18.0); Lymphocyte % 8.3 %; Mean Corpuscular HGB Conc 33 g/dL (31-36); Mean Corpuscular Hemoglobin 28 pg (27-31); Mean Corpuscular Volume 84 fL (80-94); Mean Platelet Volume 9.3 fL (7.4-10.4); Platelet Count 148 10^3/uL (150-450); Red Blood Count 3.63 10^6 /uL (4.18-5.48); Red Cell Distribution Width 17 % (10-15); White Blood Count 7.7 10^3/uL (3.5-10.8)
[2021-07-04 04:51] LABS: INR 3.75 (0.86-1.15)
[2021-07-04 05:01] LABS: Anion Gap 9 mmol/L (2-11); Blood Urea Nitrogen 48 mg/dL (6-24); CO2 Carbon Dioxide 22 mmol/L (22-32); Calcium 9.2 mg/dL (8.6-10.3); Chloride 110 mmol/L (101-111); Glucose 111 mg/dL (70-100); Potassium 4.2 mmol/L (3.5-5.0); Sodium 141 mmol/L (135-145); eGFR CKD-EPI 20.9 (>60)
[2021-07-04] MEDS ORDERED: Calcium Carb (TUMS) 500 mg CHEW TAB PO ONE (05:09)
[2021-07-04 05:20] LABS: Troponin I 0.34 ng/mL (<0.03)
[2021-07-04] MEDS ORDERED: Heparin 5000 UNITS/ML 1 mL VIAL SUBCUT SCH (06:00)
[2021-07-04] MEDS ORDERED: Furosemide 100 mg/10 ml IV VIAL IV SCH (09:00)
[2021-07-04] MEDS ORDERED: Perflutren Lipid Microsphere 3 ML VIAL ONE (09:51)
[2021-07-04] MEDS ORDERED: Warfarin per PHARMACY **NOTE FOLLOW UP SCH (17:00)
[2021-07-04] MEDS ORDERED: Warfarin DAILY REMINDER **NOTE FOLLOW UP SCH (17:00)
[2021-07-04] MEDS ORDERED: Warfarin - No Order Today **NOTE FOLLOW UP ONE (17:00)
[2021-07-05 06:03] LABS: INR 2.67 (0.86-1.15)
[2021-07-05 06:24] LABS: eGFR CKD-EPI 19.3 (>60)
[2021-07-05 11:01] VITALS: BP 151/86
== END 2021-07-05 11:30 | disposition home or self-care (01) | DRG 189 ==
LOC: ED 15:41 → SUATTDRO 23:30 → EDHOLD 23:30 → MEDTELE 07-04 01:42
PROVIDERS: ADMIT Internal Medicine; ATTEND Student in an Organized Health Care Education/Training Program